=== PATIENT | female | born 1965 | race Caucasian/White ===

== ENCOUNTER 2024-09-28 14:50 | Emergency (ER) | payer BC, SELFPAY ==
[2024-09-28 14:52] VITALS: BP 136/74; BMI 28.9
[2024-09-28 15:19] LABS: % Basophils 1.4 % (0-2); % Immature Granulocytes 0.4 % (0-0.5); % Lymphocytes 31.7 % (20.5-51.1); % Monocytes 9.8 % (1.7-9.3); % Neutrophils 44.7 % (42.2-75.2); Absolute Basophils 0.1 10^3/uL (0-0.2); Absolute Eosinophils 0.6 10^3/uL (0-0.7); Absolute Lymphocytes 1.6 10^3/uL (1.2-3.4); Absolute Monocytes 0.5 10^3/uL (0.1-0.6); Absolute Neutrophils 2.2 10^3/uL (1.4-6.5); Hematocrit 40.7 % (37.0-47.0); Mean Corp Hgb Conc. 34.4 g/dL (33.0-37.0); Mean Corpuscular Hgb 30.2 pg (27.0-31.0); Mean Corpuscular Volume 87.9 fL (81.0-99.0); Mean Platelet Volume 9.4 fL (7.4-10.4); Nucleated Red Blood Cells % 0 %; Platelet Count 252 10^3/uL (130-400); Red Blood Cell Count 4.63 10^6/uL (4.20-5.40); Red Cell Dist. Width 12.9 % (11.5-14.5); White Blood Cell Count 4.9 10^3/uL (4.8-10.8)
[2024-09-28 15:31] LABS: ALT (SGPT) 27 U/L (0-35); AST (SGOT) 24 U/L (14-36); Albumin 4.6 g/dl (3.5-5.0); Alkaline Phosphatase 79 U/L (38-126); Blood Urea Nitrogen 20 mg/dl (7-17); Calcium 9.7 mg/dl (8.4-10.2); Carbon Dioxide 30 mmol/L (22-30); Chloride 104 mmol/L (98-107); Estimated Creatinine Clearance 103 ml/min; Glucose 133 mg/dl (70-99); Potassium 3.8 mmol/L (3.5-5.1); Sodium 143 mmol/L (135-145); Total Bilirubin 0.6 mg/dl (0.2-1.3); Total Protein 7.2 g/dl (6.3-8.2); eGFR > 60.00
[2024-09-28 15:44] LABS: Troponin I < 0.012 ng/ml
[2024-09-28 16:00] VITALS: BP 123/59
--- NOTE | 2024-09-28 16:11 | ED.GENMED ---
History of Present Illness
General
Chief Complaint: Chest Pain
Source: patient and spouse
Exam Limitations: none
Time Seen by Provider: 09/28/24 15:33
Nursing documentation reviewed up to this point in time: agreed with
History of Present Illness
History of Present Illness:
58-year-old female presents with chest pain somewhat sharp in her mid chest 130-145 lasted 2025 minutes he just had lunch at a local restaurant, she has SVT status post ablation she has a loop recorder and she is followed by ,
she has been having some palpitations recently 3 episodes recently while doing 10,000 steps a day, but no chest pain different than her prior SVT difference in her symptoms today she sent message to her soccer commentator had not heard back, it is a
[employer] device, is feeling better now no nausea or vomiting pain did not go to the arm or back did not go to the jaw no history of CAD drink socially not excess had some wine last evening none today
She stills her gallbladder, she is hypertension takes lisinopril and metoprolol
Past History
Past History
ED Past Medical History: Arrthythmia and HTN
ED Past Surgical History: Cardiac (Ablation); Negative Cholecystectomy
Social History
Tobacco: Non-smoker
Alcohol: Occasional
Drug: None
Personal:
Living: with family
Employment: Employed
Review of Systems
Review of Systems
All Other Systems: Not applicable
Constitutional: Denies fever or fatigue
Cardiac: Reports chest pain; Denies palpitations or syncope
ABD/GI: Reports no symptoms; Denies abdominal pain
: Reports no symptoms
Musculoskeletal: Reports no symptoms
Skin: Reports no symptoms
Neurological: Reports no symptoms
Hematologic/Lymphatic: Reports no symptoms
Psychiatric: Reports no symptoms
Phy Exam
Physical Exam
Physical Exam:
Physical Exam
General: no apparent distress, not acutely ill
Neck: No jaundice
Heart: s1/s2 regular rate and rhythm, no murmur. equal radial pulses.
Lungs: no acute respiratory distress. clear bilaterally
Abdomen: Soft not tender
Neuro: alert and oriented. no focal neurological deficits
Skin: no rash
Psychiatric: well kept. interactive and cooperative
Extremities: no edema.
Scores
Heart Score for Chest Pain Patients
STEMI patient?: No
History: Slightly or Non-Suspicious
ECG: Nonspecific Repolarization
Age: >45 - <65 years
Risk Factors: 1 or 2 Risk Factors
Troponin: </= Normal Limit
Heart Score for Chest Pain Patients: 3
Heart Score Risk: 2.5% MACE over next 6 weeks
Course
Orders/Labs/Results
Orders:
Orders
09/28/24 15:09
EKG [Electrocardiogram (*1)] Urgent
Reason for Study: Chest Pain
EKG- Treatment ONCE
09/28/24 15:10
Complete Blood Count/With Diff Urgent
Comprehensive Metabolic Panel Urgent
Lipase Urgent
Comment: LIPASE ADDED ON BY FLOOR 4:10PM 09-28-24
Troponin I Urgent
09/28/24 15:58
D-Dimer Urgent
09/28/24 16:11
Add On- LAB Urgent
Tests Added?: lipase
09/28/24 17:53
Troponin I Urgent
Abnormal Lab Results
09/28/24
15:10
Monocytes % 9.8 H %
(1.7-9.3)
Eosinophils % 12.0 H %
(0-6)
BUN 20 H mg/dl
(7-17)
Glucose 133 H mg/dl
(70-99)
09/28/24 15:10
09/28/24 15:10
Vital Signs
Initial and Last Documented VS:
Initial Vital Signs
Temp Pulse Resp BP Pulse Ox
98.1 F 78 14 136/74 100
09/28/24 14:52 09/28/24 14:52 09/28/24 14:52 09/28/24 14:52 09/28/24 14:52
Last Documented Vital Signs
Temp Pulse Resp BP Pulse Ox
98.1 F 74 17 125/78 97
09/28/24 14:52 09/28/24 18:30 09/28/24 18:30 09/28/24 18:00 09/28/24 18:30
MDM/Problems Addressed
Differential Diagnosis Includes:
ACS reflux PE biliary conceivably pancreatitis
MDM/Problems Addressed:
Chest pain
Chronic conditions affecting care: HTN and Arrhythmia
Acute Exacerbation and/or Progression of Chronic Illness: HTN and Arrhythmia
*Pulse Oximetry
Patient hypoxic: no
*EKG
Interpreted by ED Provider?: Yes
Interpretation: abnormal
Comparison EKG: no comparison EKG present
Heart Rate: 78
Rate: normal
Rhythm: sinus
Ischemia: T-wave inversion
*Rehabilitation Teacher Interpretation
Rate: normal
Interpretation: normal
Heart Rate: 78
Rhythm: sinus
*Critical Care Note
Total Time (30-74mins, 75-104mins- exclusive of procedures): Not Applicable
Update Note
Update Note:
Update, patient's symptoms are typical and atypical for ACS, she has been active lately with no angina does get some palpitations will see if we can interrogate her [employer] loop recorder, initial troponin is undetectable repeat, her EKG does show
T wave inversions no old in her system she believes has a chronic finding but she is not certain if requested old records from , will also check high-sensitivity D-dimer she has beta blocked,
5 PM, D-dimer noted for troponin noted, report but no images from her EKG from [place] noted unable to get the report apparently per clear, report does show T wave changes, patient was comfortable if her second troponin remains undetectable okay
sending her home to follow-up with her soccer commentator any recurrent pain or bump in her troponin will recommend admission
ED Attending Note
-
Portions of this chart may have been created with voice recognition software.� Occasional wrong word or��sound alike� substitutions may have occurred due to the inherent limitations of voice recognition software.
Discharge Plan
Departure
Patient Disposition: Home (Routine Discharge)
Date of Disposition: 09/28/24
Time of Disposition: 16:58
Patient with high blood pressure during this ER visit?: No
Condition: Good
Discharge Problem:
Chest pain
Instructions: Chest Pain NON-[facility] Skilled Trades Teacher Follow Up
Referrals:
Palomo Duran MD [Family Provider] -
Activity Restrictions/Additional Instructions:
Rest, call your soccer commentator tomorrow morning to discuss your symptoms and arrange follow-up care
Interventions
Interventions:
*Risk Screen - Suicide Last Done: 09/28/24 15:03
*General Assessment Last Done: 09/28/24 15:03
*Neglect/Abuse Screening Last Done: 09/28/24 15:03
*ED- Fall Risk Assessment Last Done: 09/28/24 15:03
*ED COVID-19 Vaccine History Last Done: 09/28/24 15:03
*Nursing Disposition Last Done: 09/28/24 18:36
ED- Cardiac Assessment Last Done: 09/28/24 15:23
Discharge Date and Time
Discharge Date/Time: 09/28/24 18:44
Print Language: LITHUANIAN
[2024-09-28 16:16] LABS: D-Dimer 0.33 ug/mlFEU (0.00-0.50)
[2024-09-28 16:43] LABS: Lipase 111 U/L (23-300)
[2024-09-28 17:00] VITALS: BP 129/71
[2024-09-28 18:00] VITALS: BP 125/78
[2024-09-28 18:24] LABS: Troponin I < 0.012 ng/ml
== END 2024-09-28 18:44 | disposition home or self-care (01) ==
LOC: EMR 14:50
PROVIDERS: EMERGENCY PHYSICIAN Emergency Medicine; FAMILY PHYSICIAN Internal Medicine Interventional Cardiology; OTHER PHYSICIAN Family Medicine
DX: R07.89 Other chest pain (principal); I47.10 Supraventricular tachycardia, unspecified; I10 Essential (primary) hypertension; Z90.49 Acquired absence of other specified parts of digestive tract
CPT/HCPCS: 99283; 80053; 83690; 84484; 85025; 85379; 93005